=== PATIENT | male | born 1930 | race Caucasian/White ===

== ENCOUNTER 2019-03-13 13:19 | Outpatient (CLI) | payer OTHER ==
[~2019-03-13 13:19] MED LIST: ALLOPURINOL100 MG; CLARITIN10 M1; COZAAR50 MG; FLOVENT DI50 MCG/DIS; FUROSEMIDE40 MG; KLOR-CON 88 MEQ; LIPITOR20 MG; LORATADINE10 MG; METOLAZONE2.5 MG; SYNTHROID50 MCG; TAMS0.4C; XARELTO15 MG
== END 2019-03-13 13:58 | disposition home or self-care (01) ==
LOC: RAD 501 13:19
DX: I10 Essential (primary) hypertension (principal)